=== PATIENT | male | born 1995 | race Two or more races ===

== ENCOUNTER 2020-03-19 03:13 | Emergency (ER) | payer OTHER ==
[~2020-03-19] VITALS: Ht 185.4 cm; Wt 132.4 kg
[2020-03-19 03:15] VITALS: BP 134/81
[2020-03-19] MEDS ORDERED: FLUORESCEIN OPHTHALMIC 1 MG STRIP ONE (04:31)
[2020-03-19] MEDS ORDERED: PROPARACAINE OPHTH 0.5%, 15ML ONE (04:31)
--- NOTE | 2020-03-19 07:04 | NUR ---
RECEIVED REPORT FROM GREGORY MATAMOROS RN. PT RESTING IN EYE CHAIR.
== END 2020-03-19 07:17 | disposition home or self-care (01) ==
LOC: ED 05:29
DX: T15.01XA Foreign body in cornea, right eye, initial encounter (principal); X58.XXXA Exposure to other specified factors, initial encounter; Y93.89 Activity, other specified; Y92.89 Other specified places as the place of occurrence of the external cause; Y99.8 Other external cause status
CPT/HCPCS: 65222; 99284